=== PATIENT | male | born 1960 | race Caucasian/White ===

== ENCOUNTER 2021-05-17 22:00 | Emergency (ER) | payer OTHER ==
[~2021-05-17] VITALS: Ht 177.8 cm; Wt 87.0 kg
[~2021-05-17 22:00] MED LIST: AMBIEN 10 MG TA10 MG PO; ATIVAN0.5 MG PO; BUSPIRONE 10 MG PO; DILTIAZEM ER120 M1 PO; HYDROCODONE-AP1 EAC6 PO; [UNRECOGNIZED DRUG - REMARK]
[2021-05-17] MEDS ORDERED: NEURONTIN 400M400 M2 PO (22:15)
[2021-05-17 23:08] LABS: ABSOLUTE BASOPHILS 0.1 thou/uL (0.0-0.2); ABSOLUTE EOSINOPHILS 0.2 thou/uL (0.0-0.7); ABSOLUTE LYMPHOCYTES 1.5 thou/uL (0.8-5.3); ABSOLUTE MONOCYTES 0.5 thou/uL (0.0-1.2); BASOPHILS 1.2 %; EOSINOPHILS 4.3 %; HEMATOCRIT 44.2 % (42.0-52.0); HEMOGLOBIN 14.5 gm/dL (14.0-18.0); LYMPHOCYTES 28.6 %; MCH 28.9 pg (26.0-34.0); MCHC 32.8 g/dL (28.0-37.0); MONOCYTES 9.2 %; MPV 8.3 fl. (7.2-11.1); NUCLEATED RBCS 0 /100WBC; PLATELET COUNT* 271 thou/uL (150-400); POLYS 56.7 %; RBC 5.03 mil/uL (4.50-6.00); RDW-CV 13.6 % (10.5-14.5); WBC 5.4 thou/uL (4.0-11.0)
[2021-05-17 23:14] LABS: CALCIUM 8.3 mg/dL (8.5-10.1); CREATININE 0.9 mg/dL (0.6-1.3); POTASSIUM 3.8 mmol/L (3.5-5.1)
[2021-05-17 23:25] LABS: ALBUMIN 3.5 g/dL (3.4-5.0); TOTAL BILIRUBIN 0.4 mg/dL (<0.1-1.0); TOTAL PROTEIN 6.9 g/dL (6.4-8.2)
[2021-05-17 23:31] LABS: INFLUENZA A ANTIGEN Negative (Negative); INFLUENZA B ANTIGEN Negative (Negative)
[2021-05-18] MEDS ORDERED: PREDNISONE50 MG PO (01:59)
[2021-05-18] MEDS ORDERED: TRANSDERM-SCOP1 EACH TRANSDERM (01:59)
[2021-05-18] MEDS ORDERED: ZOFRAN ODT4 MG PO (01:59)
[2021-05-18] MEDS ORDERED: FLONASE 0.05%50 MCG NARES (01:59)
[2021-05-18] MEDS ORDERED: AUGMENTIN 875-1 EACH PO (01:59)
[2021-05-18 02:09] VITALS: BP 141/79
--- NOTE | 2021-05-18 14:22 | EKG ---
[place] [address] ELECTROCARDIOGRAM REPORT Name: LAVONNE LEMUS Room: [facility]#: [id number] Admission: 05/17/21 Attend Phys: Discharge: Date of : 56 Date of Service: 05/17/212202 Report #: [id number] THIS REPORT FOR: //name// [facility] ED Test Date: 2021-05-17 Test Time: 22:03:31 Pat Name: LAVONNE LEMUS Department: Room: Gender: Medical Management Specialist: : [id number] Requested By: Debby Feliciano Order Number: [id number] MD: Oliver Gale Measurements Intervals [place] Rate: 63 P: 61 CA: 171 QRS: 45 QRSD: 80 T: 49 QT: 397 QTc: 407 Interpretive Statements Sinus rhythm Borderline T wave abnormalities Compared to ECG 03/16/2013 07:23:47 No significant changes Electronically Signed On 05-18-2021 14:21:58 [employer] by Oliver Gale [email or web address] <ELECTRONICALLY SIGNED> By: Oliver Gale MD, [facility] 05/18/21 1421 02 02 Oliver Gale MD, FAC /EPI
== END 2021-05-18 02:10 | disposition home or self-care (01) ==
LOC: M.ERS 22:00
PROVIDERS: Emergency Medicine
DX: J01.81 Other acute recurrent sinusitis (principal); Z20.822 Contact with and (suspected) exposure to COVID-19; R42 Dizziness and giddiness; F32.9 Major depressive disorder, single episode, unspecified; F41.9 Anxiety disorder, unspecified; I48.91 Unspecified atrial fibrillation; Z79.899 Other long term (current) drug therapy; Z91.013 Allergy to seafood; Z87.891 Personal history of nicotine dependence